=== PATIENT | female | born 1945 | race Caucasian/White ===

== ENCOUNTER → 2017-03-25 | Outpatient (CLI) | payer OTHER, MEDICARE ==
[~2017-03-25] MED LIST: ACET-1325; ASPCH81X PO; ATOR10TA88 PO; CALC500C70 PO; CHOL20007 PO; LEVO100T7 PO; METO25TA3 PO; MULT-506 PO; OFLO0.3S OP; PRED1SUS3 OPL; RALO60TA12 PO
--- NOTE | 2017-03-25 13:47 | DIAGNOSTIC IMAGING REPORT ---
LEFT HIP UNILATERAL MIN 2 VIEWS CLINICAL HISTORY: LEFT HIP AND THIGH PAIN pain COMPARISON: None. DISCUSSION: The bones and joint spaces appear intact. There is no evidence of fracture, dislocation or bony disease. There is no evidence for soft tissue swelling. IMPRESSION: Negative study. Electronically signed by: Jani Negro M.D. 03/25/2017 1:46 PM Dictated Date/Time: 03/25/2017 1:46 PM
== END | disposition home or self-care (01) ==
LOC: C.RDSM 13:35
PROVIDERS: ATTEND Internal Medicine
DX: M25.552 Pain in left hip (principal); M79.652 Pain in left thigh

== ENCOUNTER → 2017-04-09 | Outpatient (CLI) | payer OTHER, MEDICARE ==
--- NOTE | 2017-04-09 11:09 | DIAGNOSTIC IMAGING REPORT ---
LUMBAR SPINE MIN 4 VIEWS CLINICAL HISTORY: Low back pain. COMPARISON: None FINDINGS: There is slight anterolisthesis of L5 on S1. There is moderate dextroscoliosis of the lumbar spine. No fracture or suspicious lesion is present. There is mild multilevel disc space narrowing and osteophytosis with moderate multilevel facet arthrosis. IMPRESSION: 1. No lumbar spine fracture. 2. Moderate dextroscoliosis of the lumbar spine. 3. Mild multilevel degenerative disc disease and moderate multilevel facet arthrosis. Electronically signed by: Prabhu Mosher M.D. 04/09/2017 11:08 AM Dictated Date/Time: 04/09/2017 11:07 AM
== END | disposition home or self-care (01) ==
LOC: C.RDSM 13:56
PROVIDERS: ATTEND Internal Medicine
DX: M51.37 Other intervertebral disc degeneration, lumbosacral region (principal); M41.9 Scoliosis, unspecified; M47.816 Spondylosis without myelopathy or radiculopathy, lumbar region

== ENCOUNTER → 2017-11-10 | Outpatient (CLI) | payer OTHER, MEDICARE ==
[~2017-11-10] MED LIST changes: +ATOR10TA82 PO; -ATOR10TA88 PO; -RALO60TA12 PO; +RALO60TA30 PO
--- NOTE | 2017-11-10 15:53 | MAMMOGRAPHY REPORT ---
BILATERAL DIGITAL SCREENING MAMMOGRAM TOMOSYNTHESIS WITH CAD: 11/10/2017 CLINICAL HISTORY: Routine screening. Patient has no complaints. TECHNIQUE: Breast tomosynthesis in addition to standard 2D mammography was performed. Current study was also evaluated with a Computer Aided Detection (CAD) system. COMPARISON: Comparison is made to exams dated: 02/01/2015 mammogram, 02/01/2013 mammogram, 11/26/2011 m ammogram, 11/06/2010 mammogram - [facility], 03/04/2009, and 11/11/2007. BREAST COMPOSITION: The tissue of both breasts is extremely dense, which lowers the sensitivity of m ammography. FINDINGS: There is a questionable area of architectural distortion in the upper inner posterior righ t breast, for which additional spot compression tomosynthesis views and possible ultrasound are recom mended. An asymmetry in the medial posterior left breast on the CC view warrants additional spot com pression tomosynthesis views and possible ultrasound, although this could represent normal overlappin g tissue. There are diffuse bilateral benign coarse and rim calcifications. No other suspicious mass, senior java architect ural distortion or cluster of microcalcifications is seen. IMPRESSION: ACR BI-RADS CATEGORY 0: INCOMPLETE EVALUATION: NEED ADDITIONAL IMAGING EVALUATION The questionable area of architectural distortion in the upper inner posterior right breast, and left breast asymmetry in the medial posterior breast need additional imaging evaluation. The patient will be called to schedule an appointment. Approximately 10% of breast cancers are not detected with mammography. A negative mammographic report should not delay biopsy if a clinically suggestive mass is present. Claribel Castillo M.D. ay/:11/10/2017 14:12:26 [employer] Worker: Helen LAFLEUR(R)(M), [facility] letter sent: Addl Imaging 0 BI-RADS Code: ACR BI-RADS Category 0: Incomplete Evaluation: Need Additional Imaging Evaluation
== END | disposition home or self-care (01) ==
LOC: C.MAMM 13:06
PROVIDERS: ATTEND Family Medicine
DX: Z12.31 Encounter for screening mammogram for malignant neoplasm of breast (principal); R92.8 Other abnormal and inconclusive findings on diagnostic imaging of breast; N64.89 Other specified disorders of breast

== ENCOUNTER → 2017-11-12 | Outpatient (CLI) | payer OTHER, MEDICARE ==
--- NOTE | 2017-11-12 13:36 | MAMMOGRAPHY REPORT ---
BILATERAL DIGITAL DIAGNOSTIC MAMMOGRAM TOMOSYNTHESIS AND TARGETED RIGHT ULTRASOUND: 11/12/2017 CLINICAL HISTORY: Callback from screening mammogram for possible right breast architectural distortio n and left breast asymmetry. TECHNIQUE: Breast tomosynthesis in addition to standard 2D mammography was performed. Spot compress ion right CC and MLO and left CC tomosynthesis images were obtained. COMPARISON: Comparison is made to exams dated: 11/10/2017 mammogram, 02/01/2015 mammogram, 02/01/2013 m ammogram, 11/26/2011 mammogram, 11/06/2010 mammogram - [facility], and 03/04/2009. BREAST COMPOSITION: The tissue of both breasts is extremely dense, which lowers the sensitivity of m ammography. FINDINGS: The previously described asymmetry seen within the left medial breast on the cc view effac es on the additional spot compression view and has the appearance of normal fibroglandular tissue. N o suspicious mass or architectural distortion is seen within the left breast on the additional views. The previously described area of questionable architectural distortion in the right upper inner quadr ant does not clearly persist on the additional spot compression views although a few converging lines are seen within this region on the additional views which remain equivocal. Targeted ultrasound was performed of the right upper inner quadrant of the region of the questionable distortion. There is dense shadowing of fibroglandular tissue which makes it difficult to evaluate for subtle shadowing associated with architectural distortion, with most prominent area of hypoechoic shadowing seen within the right 1:00 periareolar breast. While all the findings could represent nor mal dense fibroglandular tissue, further evaluation with MRI is recommended to exclude a suspicious a bnormality. IMPRESSION: ACR BI-RADS CATEGORY 0: INCOMPLETE EVALUATION: NEED ADDITIONAL IMAGING EVALUATION, TARG ETED ULTRASOUND ACR BI-RADS CATEGORY 0: INCOMPLETE EVALUATION: NEED ADDITIONAL IMAGING EVALUATION 1. The possible architectural distortion seen within the right upper outer quadrant mammographically remains equivocal on the additional views. There is dense shadowing of tissue seen within this radha on on ultrasound, which significantly lowers the sensitivity of the exam and makes it difficult to ev aluate for subtle shadowing which could be associated with architectural distortion. Although the fi ndings may represent normal fibroglandular tissue, recommend further evaluation with bilateral breast MRI to exclude a suspicious abnormality. 2. The left medial breast asymmetry effaces on the additional views and is benign and compatible wit h normal fibroglandular tissue. The patient has been verbally notified of the results. Approximately 10% of breast cancers are not detected with mammography. A negative mammographic report should not delay biopsy if a clinically suggestive mass is present. Alena Patel M.D. ah/:11/12/2017 12:13:52 Experimental Technician: Genoveva BRIONES)(Earnest), [facility] letter sent: Addl Imaging 0 BI-RADS Code: ACR BI-RADS Category 0: Incomplete Evaluation: Need Additional Imaging Evaluation Ult rasound BI-RADS: ACR BI-RADS Category 0: Incomplete Evaluation: Need Additional Imaging Evaluation
== END | disposition home or self-care (01) ==
LOC: C.MAMM 10:18
PROVIDERS: ATTEND Family Medicine
DX: N64.89 Other specified disorders of breast (principal)

== ENCOUNTER → 2017-11-24 | Outpatient (CLI) | payer OTHER, MEDICARE ==
[~2017-11-24] MED LIST changes: +GADAVIST IV PRN
--- NOTE | 2017-11-25 15:16 | MAMMOGRAPHY REPORT ---
BREAST MRI OF BOTH BREASTS : 11/24/2017 CLINICAL HISTORY: Possible architectural distortion seen within the right upper inner quadrant mammog raphically, for which MRI was recommended for further evaluation. COMPARISON: Comparison is made to exams dated: 11/12/2017 mammogram, 11/12/2017 ultrasound, 11/10/2017 ma mmogram, 02/01/2015 mammogram, 02/01/2013 mammogram, and 11/26/2011 mammogram - [facility]. Technique: The patient was placed prone in a dedicated breast imaging coil. Precontrast axial T1-sharyn ghted, axial T2-weighted fat saturation, and axial T1-weighted fat saturation images were obtained. After the administration of 6 mL of Gadavist IV contrast, sequential T1-weighted fat saturation image s were obtained. Subtraction images were obtained of the dynamic contrast enhanced sequences, and 3- D reformations were performed. The [employer] software was used for kinetic analysis. Findings: Right breast: There is mild background parenchymal enhancement. There are no suspicious enhancing ma sses or areas of abnormal non-mass enhancement seen within the right breast. Specifically, there is no abnormality seen in the region of the questionable architectural distortion in the right upper inn er quadrant on the recent diagnostic mammograms. Left breast: There is mild background parenchymal enhancement. There are no suspicious enhancing mas ses or areas of abnormal non-mass enhancement seen within the left breast. There is no evidence of axillary adenopathy. The chest wall structures are negative. Visualized ext ramammary soft tissues are grossly unremarkable. IMPRESSION: ACR BI-RADS CATEGORY 2: BENIGN No MRI evidence of malignancy in either breast. Specifically, there is no suspicious MRI abnormality in the region of the questionable architectural distortion in the right breast seen mammographically ; given the lack of corresponding MRI abnormality, the finding is benign and compatible with normal f ibroglandular tissue. The patient can return to routine annual mammography, due October 2018. Alena Patel M.D. 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
== END | disposition home or self-care (01) ==
LOC: C.MRI 06:50
PROVIDERS: ATTEND Family Medicine
DX: N64.89 Other specified disorders of breast (principal)